=== PATIENT | female | born 1950 | race Caucasian/White ===

== ENCOUNTER 2017-12-17 08:15 | Inpatient (IN) | payer OTHER ==
[~2017-12-17] VITALS: Ht 160 cm; Wt 70.3 kg
[2017-12-17] MEDS ORDERED: GLIPIZIDE ER5 MG PO (10:14)
[2017-12-17] MEDS ORDERED: COZAAR25 MG PO (10:14)
[2017-12-17] MEDS ORDERED: CELEXA40 MG PO (10:15)
[2017-12-17] MEDS ORDERED: PLETAL PO (10:15)
[2017-12-17] MEDS ORDERED: ZANTAC300 MG PO (10:15)
[2017-12-17] MEDS ORDERED: B-121000 MCG PO (10:16)
[2017-12-17] MEDS ORDERED: LAMICTAL100 MG PO (10:16)
[2017-12-26] MEDS ORDERED: MIRALAX17 GM PO (07:47)
[2017-12-26] MEDS ORDERED: ZOFRAN ODT4 MG PO (07:47)
[2017-12-26] MEDS ORDERED: ULTRACET PO (07:47)
[2017-12-30] MEDS ORDERED: ZANTAC150 MG PO (14:03)
[2017-12-30] MEDS ORDERED: ACIDOPHILUS1 EAC1 PO (14:03)
[2017-12-30] MEDS ORDERED: DOLOGESIC 500-1 EACH PO (14:03)
== END 2017-12-27 13:35 | disposition home or self-care (01) | DRG 982 ==
LOC: O/R 12-25 05:35 → SURH 12-25 07:00
PROVIDERS: Surgery
PROC: 0BQT4ZZ Repair Diaphragm, Percutaneous Endoscopic Approach (ICD-10-PCS; 2017-12-25)
PROC: 0DV44ZZ Restriction of Esophagogastric Junction, Percutaneous Endoscopic Approach (ICD-10-PCS; 2017-12-25)
PROC: 0DJ08ZZ Inspection of Upper Intestinal Tract, Via Natural or Artificial Opening Endoscopic (ICD-10-PCS; 2017-12-25)
PROC: 0D844ZZ Division of Esophagogastric Junction, Percutaneous Endoscopic Approach (ICD-10-PCS; principal; 2017-12-25 07:00)
DX: E11.9 Type 2 diabetes mellitus without complications (principal); G40.89 Other seizures; I11.9 Hypertensive heart disease without heart failure; E78.4 Other hyperlipidemia; K21.9 Gastro-esophageal reflux disease without esophagitis; Z87.11 Personal history of peptic ulcer disease; K64.8 Other hemorrhoids; Z86.73 Personal history of transient ischemic attack (TIA), and cerebral infarction without residual deficits; K57.30 Diverticulosis of large intestine without perforation or abscess without bleeding; F32.89 Other specified depressive episodes; K22.0 Achalasia of cardia; K44.9 Diaphragmatic hernia without obstruction or gangrene; K43.2 Incisional hernia without obstruction or gangrene

== ENCOUNTER → 2017-12-30 | Emergency (ER) | payer OTHER ==
[~2017-12-30] VITALS: Ht 160 cm; Wt 68.9 kg
[~2017-12-30] MED LIST: ACIDOPHILUS1 EAC1 PO; B-121000 MCG PO; CELEXA40 MG PO; COZAAR25 MG PO; DOLOGESIC 500-1 EACH PO; GLIPIZIDE ER5 MG PO; LAMICTAL100 MG PO; MIRALAX17 GM PO; PLETAL PO; ULTRACET PO; ZANTAC150 MG PO; ZANTAC300 MG PO; ZOFRAN ODT4 MG PO
== END | disposition home or self-care (01) ==
LOC: ER 10:12
DX: G89.18 Other acute postprocedural pain (principal); R10.84 Generalized abdominal pain; K42.9 Umbilical hernia without obstruction or gangrene

== ENCOUNTER 2018-01-26 13:32 | Outpatient (CLI) | payer OTHER | END 2018-01-26 13:34 | disposition home or self-care (01) | LOC: RX STUDY 13:32 | DX: K22.0 Achalasia of cardia (principal) ==